=== PATIENT | male | born 1950 | race Caucasian/White ===

== ENCOUNTER 2023-02-26 14:46 | Outpatient (CLI) | payer MEDICARE, OTHER ==
[2023-02-26 15:31] LABS: CALCIUM 9.5 mg/dL (8.5-10.3)
--- NOTE | 2023-03-01 11:06 | MRI Report ---
PROCEDURE: ABDOMEN W/WO INDICATIONS: LIVER CYST CONTRAST: GADAVIST 9.8 TECHNIQUE: Coronal ultra fast SE, axial 2D spoiled GE in- and [id number]; axial breath-hold T2 fast SE. Dynam ic axial ultra fast GE during the administration of contrast; post-contrast coronal ultra fast GE or 2D spoiled GE with fat saturation from the hepatic dome to the iliac crests. Optional diffusion weig hted imaging and ADC may be performed. COMPARISON: None available FINDINGS: Image quality: Excellent. Lung bases and heart: No basal effusions. Normal size heart. Liver: Septated, thin-walled cystic lesion in segment 7 measures 2.6 cm in diameter. No suspicious en hancement. Unilocular 1.3 cm cyst in the subcapsular segment 3. No suspicious arterial enhancement. N ormal size liver with a smooth margin. Gallbladder and biliary tree: Normal gallbladder size without visible stones. Nondilated biliary tree . Spleen: Borderline splenomegaly at 13.9 cm in length. Pancreas: No pancreatic ductal dilation. Adrenals: No adrenal nodule. Kidneys and ureters: No hydronephrosis. No renal cystic lesion which requires follow up. No solid mas s. 2 simple cysts in the posterior right kidney and several tiny probable cysts throughout the left r enal cortex. A small proteinaceous cyst arises from the lower pole of the right kidney. Bowel and peritoneum: The visible loops of colon demonstrate moderate diverticulosis. Decompressed st omach. No dilated small bowel loops. Lymph nodes: No central or retroperitoneal adenopathy. Vessels: No infrarenal aortic aneurysm. Bones: No aggressive osseous abnormality. Other: Numerous tacks of prior ventral hernia repairs. There is a small right lateral Spegelian/ Rich ter's hernia approximately 15 cm lateral to midline. IMPRESSION: 1. 2.6 cm right lobe liver cyst, benign. 2. Borderline splenomegaly, potentially physiologic for the patient. Correlate with body habitus. 3. Right lateral abdominal wall hernia. 4. Colonic diverticulosis. Reviewed by: Ly Jack MD on 03/01/2023 11:05 AM PDT Approved by: Ly Jack MD on 03/01/2023 11:05 AM PDT Station ID: [id number]
== END 2023-02-26 14:47 | disposition home or self-care (01) ==
LOC: LAB 14:46 → DI 14:47
PROVIDERS: ATTEND Pediatrics
DX: K76.89 Other specified diseases of liver (principal); I10 Essential (primary) hypertension; K43.9 Ventral hernia without obstruction or gangrene; K57.30 Diverticulosis of large intestine without perforation or abscess without bleeding
CPT/HCPCS: 36415; 74183; 80048; A9585

== ENCOUNTER 2023-11-12 15:34 | Outpatient (CLI) | payer MEDICARE, OTHER ==
--- NOTE | 2023-11-14 17:38 | CT Report ---
PROCEDURE: Chest WO INDICATIONS: LUNG NODULE TECHNIQUE: A CT scan of the chest was performed. Intravenous contrast media was not administered. Images were re corded and evaluated at appropriate window settings. Reformats: axial MIP of the chest, coronal and s agittal. For radiation dose reduction, the following was used: automated exposure control, adjustment of mA and/or kV according to patient size. COMPARISON: CT chest on October 17, 2021. FINDINGS: Image quality: Diagnostic. Chest wall and lower neck: No thyroid nodule which requires sonographic follow up. No axillary or sup raclavicular adenopathy by size. Lungs and pleura: No consolidation. No pleural effusions. No pneumothorax. Compared to CT chest date d October 17, 2021, no new or enlarging solid pulmonary nodules or consolidation. A few scattered solid , noncalcified pulmonary nodules which are stable. For example, right lower lobe, measures 3 mm (4/60 ). Patent central airways. A few scattered calcified granulomas. Mediastinum: Heart size is normal. No pericardial effusion. No large vessel abnormality. No mediastin al adenopathy by size criteria. Marked LAD coronary vessel calcification. Small hiatal hernia. Bones: No aggressive osseous abnormality. No acute fracture. [id number] multilevel degenerative changes of the spine. Upper Abdomen: Stable lobulated cyst in the right hepatic lobe. Stable cysts in the right upper and i nterpolar region of the kidney. Nonobstructive nephrolith in the left upper pole measuring 3 mm (08/15 6, stable). Surgical clips inferior to the right hepatic lobe, as before. Colonic diverticulosis, wit hout diverticulitis. IMPRESSION: 1.Compared to CT chest dated October 17, 2021, no new or enlarging solid pulmonary nodules or consolida tion. A few scattered pulmonary nodules measuring up to 3 mm which are stable. 2.Marked LAD coronary vessel calcification. Consider Cardiology consultation. 3.Nonobstructive nephrolith in the left upper pole measuring 3 mm, stable. 4.Colonic diverticulosis, without diverticulitis. Reviewed by: Misa Michelle MD on 11/14/2023 5:37 PM PDT Approved by: Misa Michelle MD on 11/14/2023 5:37 PM PDT Station ID: [id number]
== END 2023-11-12 15:35 | disposition home or self-care (01) ==
LOC: DI 15:34
DX: R91.8 Other nonspecific abnormal finding of lung field (principal); I25.10 Atherosclerotic heart disease of native coronary artery without angina pectoris; N20.0 Calculus of kidney; K57.30 Diverticulosis of large intestine without perforation or abscess without bleeding